=== PATIENT | female | born 1985 | race Caucasian/White ===

== ENCOUNTER → 2019-03-26 | Outpatient (CLI) | payer OTHER ==
--- NOTE | 2019-03-26 16:20 | RADIOLOGY REPORT (SQ) ---
EXAM DESCRIPTION: CHEST PA/LATERAL COMPLETED DATE/TIME: 03/26/2019 4:12 pm REASON FOR STUDY: PRESSURE IN LEFT SIDE OF CHEST COMPARISON: None. EXAM PARAMETERS: NUMBER OF VIEWS: two views TECHNIQUE: Digital Frontal and Lateral radiographic views of the chest acquired. RADIATION DOSE: NA LIMITATIONS: none FINDINGS: LUNGS AND PLEURA: No opacities, masses or pneumothorax. No pleural effusion. MEDIASTINUM AND HILAR STRUCTURES: No masses or contour abnormalities. HEART AND VASCULAR STRUCTURES: Heart normal size. No evidence for failure. BONES: No acute findings. HARDWARE: None in the chest. OTHER: No other significant finding. IMPRESSION: NO SIGNIFICANT RADIOGRAPHIC FINDING IN THE CHEST. TECHNICAL DOCUMENTATION: JOB ID: [id number] [employer]- All Rights Reserved Reading location - IP/workstation name: [email or web address]
--- NOTE | 2019-03-27 09:29 | EKG REPORT ---
SEVERITY:- NORMAL ECG - SINUS RHYTHM : Confirmed by: Brooklyn Naranjo 27-Mar-2019 09:28:59
== END ==
LOC: OD 15:49
PROVIDERS: ATTEND Nurse Practitioner Family
DX: R07.89 Other chest pain (principal)
CPT/HCPCS: 71046; 93005; 93010

== ENCOUNTER 2019-04-24 05:27 | Day surgery (SDC) | payer OTHER ==
[2019-04-16 10:44] LABS: HEMATOCRIT 40.6 % (36.0-47.0); HEMOGLOBIN 14.1 g/dL (12.0-15.5); MEAN CORPUSCULAR HEMOGLOBIN 30.5 pg (27.0-33.4); MEAN CORPUSCULAR HGB CONC 34.7 g/dL (32.0-36.0); MEAN CORPUSCULAR VOLUME 88 fl (80-97); PLATELET COUNT 257 10^3/uL (150-450); RED BLOOD COUNT 4.62 10^6/uL (3.72-5.28); RED CELL DISTRIBUTION WIDTH 12.7 % (11.5-14.0); WHITE BLOOD COUNT 6.6 10^3/uL (4.0-10.5)
[2019-04-16 10:50] LABS: APPEARANCE,URINE SLIGHTLY-CLOUDY; BILIRUBIN,URINE NEGATIVE (NEGATIVE); COLOR,URINE YELLOW; GLUCOSE, URINE NEGATIVE (NEGATIVE); KETONES,URINE NEGATIVE (NEGATIVE); LEUKOCYTE ESTERASE,URINE NEGATIVE (NEGATIVE); NITRITE,URINE NEGATIVE (NEGATIVE); PROTEIN,URINE NEGATIVE (NEGATIVE); URINE SPECIFIC GRAVITY 1.025; UROBILINOGEN,URINE NEGATIVE mg/dL (<2.0)
[~2019-04-24 05:27] MED LIST: LACTATED RINGERS 1000 ML IV PRN; LIDOCAINE 0.5% INJ-PF (5 MG/ML) 50 ML SDV SUBCUT PRN
[2019-04-24] MEDS ORDERED: MIDAZOLAM 2 MG/2 ML INJ ONE (07:07)
[2019-04-24] MEDS ORDERED: FENTANYL CITRATE INJ/PF 100 MCG/2 ML AMPUL ONE ×2 (07:07→08:33)
[2019-04-24] MEDS ORDERED: PROPOFOL INJ 200 MG/20 ML VIAL IV ONE (07:07)
[2019-04-24] MEDS ORDERED: KETAMINE HCL INJ 500 MG/10 ML VIAL ONE (07:07)
[2019-04-24] MEDS ORDERED: FENTANYL CITRATE INJ/PF 100 MCG/2 ML AMPUL IV PRN ×3 (07:47)
[2019-04-24] MEDS ORDERED: DIPHENHYDRAMINE HCL 50 MG/ML VIAL IV PRN (07:47)
[2019-04-24] MEDS ORDERED: MEPERIDINE HCL/PF INJ 25 MG/1 ML DISP.SYRIN IV PRN (07:47)
[2019-04-24] MEDS ORDERED: MORPHINE SULFATE 10 MG/ML INJ IV PRN (07:47)
[2019-04-24] MEDS ORDERED: PROMETHAZINE HCL INJ 25 MG/1 ML VIAL IV PRN (07:47)
[2019-04-24] MEDS ORDERED: OXYCODONE-ACETAMINOPHEN 5-325 MG TABLET PO PRN ×2 (08:08)
[2019-04-24] MEDS ORDERED: RINGERS SOLUTION,LACTATED 1,000 ML IV PRN (08:08)
[2019-04-24] MEDS ORDERED: KETOROLAC TROMETHAMINE INJ/PF 30 MG/1 ML SDV IV PRN (08:08)
[2019-04-24] MEDS ORDERED: IBUPROFEN 800 MG TABLET PO PRN (08:08)
--- NOTE | 2019-04-24 08:12 | Operative Report ---
Operative Report DATE OF SURGERY: 04/24/19 PREOPERATIVE DIAGNOSIS: Patient requests endometrial ablation for heavy menses POSTOPERATIVE DIAGNOSIS: Same OPERATION: D&C hysteroscopy NovaSure ablation SURGEON: PAULETTE FONTANA ANESTHESIA: LMAC TISSUE REMOVED OR ALTERED: Cervical and uterine curettings COMPLICATIONS: None ESTIMATED BLOOD LOSS: 10 cc INTRAOPERATIVE FINDINGS: Anteverted uterine cavity 4.5 cm in length and 3.5 cm in width PROCEDURE: Patient was taken the OR and placed in supine position. Anesthesia was induced. She is placed in dorsolithotomy position using Jewel stirrups. Her perineum and vagina were prepared and draped in sterile fashion. She had just voided and catheter was not used. A weighted speculum was placed in the vagina and the anterior lip cervix grasped. Uterus sounded to 7 cm before and after the case. Cervix was gently dilated hysteroscope inserted and a uterine cavity was seen with a lot of tissue however there were no fibroids or polyps. Endocervical and endometrial curettings were obtained. The NovaSure device was inserted tested and fired without incident. At the end of the case the NovaSure was removed hysteroscope was once again inserted and showed a well ablated uterine cavity. All instruments were removed she is placed back in supine position taken recovery in stable condition.
--- NOTE | 2019-04-24 08:16 | PDOC DISCHARGE SUMMARY ---
Impression - Admit/DC Date/PCP Admission Date/Primary Care Provider: KATHRYN RAM NP Discharge Date: 04/24/19 - Discharge Diagnosis (1) Heavy menses Is this a current diagnosis for this admission?: Yes - Assessment Summary: Patient was brought in for a endometrial ablation for heavy menses. This was performed please see the operative report. - Additional Information Resuscitation Status: Full Code Discharge Diet: Regular Discharge Activity: Balance Activity w/Rest Referrals: KATHRYN RAM NP [Primary Care Provider] - Prescriptions: Oxycodone HCl/Acetaminophen [Percocet 5-325 mg Tablet] 1 tab PO Q4HP PRN #14 tablet PRN Reason: Ibuprofen [Motrin 800 mg Tablet] 800 mg PO Q8H PRN 5 Days #20 tablet PRN Reason: Home Medications: Ibuprofen [Motrin 800 mg Tablet] 800 mg PO Q8H PRN 5 Days #20 tablet 04/24/19 Oxycodone HCl/Acetaminophen [Percocet 5-325 mg Tablet] 1 tab PO Q4HP PRN #14 tablet 04/24/19 Additional Information: Follow-up is been scheduled in 2 weeks History of Present Illiness History of Present Illness: RUDY DARLING is a 33 year old female Physical Exam - Physical Exam Vital Signs: Temp Pulse Resp BP Pulse Ox 97.4 F 74 18 107/73 100 04/24/19 05:30 04/24/19 05:30 04/24/19 05:30 04/24/19 05:30 04/24/19 05:30 Intake & Output 04/23/19 04/24/19 04/25/19 06:59 06:59 06:59 Intake Total 0 Balance 0 Weight 71.67 kg Results Laboratory Results: WBC 6.6 10^3/uL (4.0-10.5) 04/16/19 10:10 RBC 4.62 10^6/uL (3.72-5.28) 04/16/19 10:10 Hgb 14.1 g/dL (12.0-15.5) 04/16/19 10:10 Hct 40.6 % (36.0-47.0) 04/16/19 10:10 MCV 88 fl (80-97) 04/16/19 10:10 MCH 30.5 pg (27.0-33.4) 04/16/19 10:10 MCHC 34.7 g/dL (32.0-36.0) 04/16/19 10:10 RDW 12.7 % (11.5-14.0) 04/16/19 10:10 Plt Count 257 10^3/uL (150-450) 04/16/19 10:10 Urine Color YELLOW 04/16/19 10:10 Urine Appearance SLIGHTLY-CLOUDY 04/16/19 10:10 Urine pH 5.0 (5.0-9.0) 04/16/19 10:10 Ur Specific [place] 1.025 04/16/19 10:10 Urine Protein NEGATIVE mg/dL (NEGATIVE) 04/16/19 10:10 Urine Glucose (UA) NEGATIVE mg/dL (NEGATIVE) 04/16/19 10:10 Urine Ketones NEGATIVE mg/dL (NEGATIVE) 04/16/19 10:10 Urine Blood SMALL (NEGATIVE) H 04/16/19 10:10 Urine Nitrite NEGATIVE (NEGATIVE) 04/16/19 10:10 Urine Bilirubin NEGATIVE (NEGATIVE) 04/16/19 10:10 Urine Urobilinogen NEGATIVE mg/dL (<2.0) 04/16/19 10:10 Ur Leukocyte Esterase NEGATIVE (NEGATIVE) 04/16/19 10:10 Urine WBC (Auto) 1 /HPF 04/16/19 10:10 Urine RBC (Auto) 4 /HPF 04/16/19 10:10 U Hyaline Cast (Auto) 1 /LPF 04/16/19 10:10 Squamous Epi Cells Auto 2 /HPF 04/16/19 10:10 Urine Mucus (Auto) MANY /LPF 04/16/19 10:10 Urine Ascorbic Acid NEGATIVE (NEGATIVE) 04/16/19 10:10 Urine HCG, Qual NEGATIVE (NEGATIVE) 04/24/19 05:30 Stroke Is this a Stroke Patient?: No Acute Heart Failure - Is this a Heart Failure Patient?: No
[2019-04-24] MEDS ORDERED: ACETAMINOPHEN 1,000 MG/100 ML RTUPB IV ONE (08:20)
[2019-04-24] MEDS ORDERED: KETOROLAC TROMETHAMINE INJ/PF 30 MG/1 ML SDV ONE (08:20)
[2019-04-24] MEDS ORDERED: SCOPOLAMINE HYDROBROMIDE 1.5 MG PATCH.TD72 ONE (08:39)
[2019-04-24] MEDS ORDERED: ONDANSETRON HCL INJ/PF 4 MG/2 ML SDV ONE ×2 (08:39→10:42)
[2019-04-24] MEDS ORDERED: OXYCODONE-ACETAMINOPHEN 5-325 MG TABLET ONE (09:36)
[2019-04-24] MEDS ORDERED: DEXAMETHASONE SOD PHOSPHATE INJ 4 MG/1 ML VIAL ONE (10:42)
[2019-04-24 10:46] VITALS: BP 120/83
== END 2019-04-24 10:40 | disposition home or self-care (01) ==
LOC: OROUT 05:27
PROVIDERS: ATTEND Obstetrics & Gynecology
DX: N94.6 Dysmenorrhea, unspecified (principal); N85.4 Malposition of uterus; Z88.0 Allergy status to penicillin
CPT/HCPCS: 36415; 85027; 81025; 81001; 88305 ×2; 00952; 58563; J2250; J1100; J3010; J3490; J1885; J2405; J2704; J0131; 952